=== PATIENT | female | born 1990 | race Hispanic/Latino ===

== ENCOUNTER 2017-07-27 12:29 | Emergency (ER) | payer MEDICAID ==
[2017-07-27] MEDS ORDERED: ONDANSETRON ODT 4 MG TAB ONE (13:14)
[2017-07-27 13:16] LABS: APPEARANCE,URINE Clear (CLEAR); BILIRUBIN,URINE Negative (NEGATIVE); COLOR,URINE Yellow (YELLOW); GLUCOSE, URINE (UA) Negative (NEGATIVE); KETONES,URINE >=80 mg/dL (NEGATIVE); LEUKOCYTE ESTERASE ,URINE Negative (NEGATIVE); NITRATE,URINE Negative (NEGATIVE); OCCULT BLOOD,URINE Negative (NEGATIVE); PH,URINE 8.5 (5.0-8.0); PROTEIN,URINE Negative (NEGATIVE); UROBILINOGEN,URINE 0.2 mg/dL (0.2-1.0)
[2017-07-27 13:20] LABS: HCG,QUAL RESULT NEGATIVE (NEGATIVE)
[2017-07-27 13:34] LABS: BACTERIA,URINE Rare /HPF (None Seen); SQUAMOUS EPITHELIAL CELL,UR Rare /LPF (0-2); WBC,URINE 0-1 /HPF (0-1)
== END 2017-07-27 13:48 | disposition home or self-care (01) ==
LOC: EDH 12:29
DX: R11.2 Nausea with vomiting, unspecified (principal); R19.7 Diarrhea, unspecified; T37.5X5A Adverse effect of antiviral drugs, initial encounter; Z98.890 Other specified postprocedural states; Y92.89 Other specified places as the place of occurrence of the external cause
CPT/HCPCS: 81001; 81025

== ENCOUNTER 2018-08-25 17:34 | Observation (INO) | payer MEDICAID ==
[2018-08-25 18:14] LABS: APPEARANCE,URINE Clear (CLEAR); BILIRUBIN,URINE Negative (NEGATIVE); COLOR,URINE Yellow (YELLOW); GLUCOSE, URINE (UA) Negative (NEGATIVE); KETONES,URINE Negative (NEGATIVE); LEUKOCYTE ESTERASE ,URINE Negative (NEGATIVE); NITRATE,URINE Negative (NEGATIVE); OCCULT BLOOD,URINE Negative (NEGATIVE); PROTEIN,URINE Negative (NEGATIVE); UROBILINOGEN,URINE 0.2 mg/dL (0.2-1.0)
[2018-08-25 19:32] LABS: AMPHET/METH SCREEN,URINE NEGATIVE (NEGATIVE); BARBITURATE SCREEN, URINE NEGATIVE (NEGATIVE); BENZODIAZEPINES SCREEN,URINE NEGATIVE (NEGATIVE); CANNABINOID SCREEN,URINE NEGATIVE (NEGATIVE); COCAINE SCREEN,URINE NEGATIVE (NEGATIVE); OPIATE SCREEN,URINE NEGATIVE (NEGATIVE); PHENCYCLIDINE SCREEN,URINE NEGATIVE (NEGATIVE)
[2018-08-25] MEDS ORDERED: LACTATED RINGERS 1000ML 1,000 ML IV ONE (20:07)
[2018-08-25] MEDS ORDERED: LACTATED RINGERS 1000ML 1,000 ML IV SCH (20:30)
[2018-08-25] MEDS ORDERED: MAGNESIUM SULFATE 1,000 ML IV PRN (20:38)
[2018-08-25] MEDS ORDERED: CALCIUM GLUCONATE 1 GM/10 ML VIAL IV PRN (20:45)
[2018-08-25] MEDS ORDERED: MAGNESIUM 4GM PREMIX 100ML 100 ML IV SCH (20:45)
[2018-08-25] MEDS ORDERED: MEPERIDINE-PF 50 MG/ML SYG IVP PRN (20:45)
[2018-08-25] MEDS ORDERED: PROMETHAZINE HCL 25 MG/ML 1ML AMPULE IM PRN (20:45)
== END 2018-08-26 12:30 | disposition home or self-care (01) ==
LOC: EDH 17:34 → LDH 18:50
PROVIDERS: ADMIT Specialist; ATTEND Specialist
DX: O60.02 Preterm labor without delivery, second trimester (principal); Z3A.19 19 weeks gestation of pregnancy; Z79.899 Other long term (current) drug therapy
CPT/HCPCS: 80305; 81003; 96365; 96366 ×2; 99284; A4344; G0378 ×18; J3475 ×2; J7120; L0625; 96360

== ENCOUNTER 2018-09-05 14:04 | Observation (INO) | payer MEDICAID ==
[~2018-09-05] VITALS: Ht 157.5 cm; Wt 48.1 kg
[2018-09-05 14:37] LABS: APPEARANCE,URINE Clear (CLEAR); BILIRUBIN,URINE Negative (NEGATIVE); COLOR,URINE Yellow (YELLOW); GLUCOSE, URINE (UA) Negative (NEGATIVE); KETONES,URINE Negative (NEGATIVE); LEUKOCYTE ESTERASE ,URINE Negative (NEGATIVE); NITRATE,URINE Negative (NEGATIVE); OCCULT BLOOD,URINE Moderate (NEGATIVE); PH,URINE 7.5 (5.0-8.0); PROTEIN,URINE Negative (NEGATIVE); UROBILINOGEN,URINE 0.2 mg/dL (0.2-1.0)
[2018-09-05 15:09] LABS: BACTERIA,URINE Few /HPF (None Seen); RBC,URINE >100 /HPF (0-1); WBC,URINE None Seen /HPF (0-1)
[2018-09-05 15:10] LABS: MUCUS,URINE Few LPF (None Seen)
[2018-09-05] MEDS ORDERED: LACTATED RINGERS 1000ML 1,000 ML IV SCH (16:00)
[2018-09-05] MEDS ORDERED: TERBUTALINE SULFATE VIAL 1MG/ML SQ SCH (16:00)
== END 2018-09-05 17:10 | disposition home or self-care (01) ==
LOC: EDH 14:04 → LDH 14:05
PROVIDERS: ADMIT Specialist; ATTEND Specialist
DX: O26.892 Other specified pregnancy related conditions, second trimester (principal); R10.9 Unspecified abdominal pain; Z3A.21 21 weeks gestation of pregnancy
CPT/HCPCS: 81001; 96372; 99284; G0378 ×3; J3105; J7120; 96360